=== PATIENT | female | born 1955 | race Caucasian/White ===

== ENCOUNTER → 2016-10-04 | Outpatient (CLI) | payer BC ==
[~2016-10-04] VITALS: Ht 163.8 cm; Wt 73.0 kg
[~2016-10-04] MED LIST: ADDERALL30 MG PO; BACTRIM,SEPT1 TABLET PO; CALCIUM 500 MG1 EAC1 PO; CALCIUM 500 MG1 EACH PO; CALCIUM 600 +1 EA15 PO; HYDROCODON-ACE1 EAC8 PO; KLONOPIN1 MG PO; PRAVASTATIN SOD20 MG PO; PROBIOTIC250 MG PO; PROPRANOLOL HCL20 MG PO; RISPERDAL1 MG PO; RITALIN LA40 MG PO; ROBAXIN500 MG PO; SKELAXIN800 MG PO; VITAMIN D32000 UNI1 PO; VITAMIN D35000 UNIT PO; WELLBUTRIN SR100 MG PO; WELLBUTRIN XL150 MG PO; WELLBUTRIN XL300 MG PO; ZETIA10 MG PO; ZOFRAN4 MG PO; ZOLOFT100 MG PO
[2016-10-04 19:04] VITALS: BP 143/67
== END | disposition home or self-care (01) ==
LOC: IVINF 09-13 15:00
DX: M85.80 Other specified disorders of bone density and structure, unspecified site (principal)
CPT/HCPCS: 96365; J3489